=== PATIENT | female | born 1950 | race Caucasian/White ===

== ENCOUNTER 2020-11-22 23:33 | Inpatient (IN) | payer MEDICARE ==
[~2020-11-22] VITALS: Ht 160 cm; Wt 51.7 kg
[2020-11-23] VITALS (7 sets, daily range): BP systolic 160–206; BP diastolic 68–82
[2020-11-23] MEDS ORDERED: ONDANSETRON 4 MG/2 ML (SDV) Z0FRAN IVP PRN (02:00)
[2020-11-23] MEDS ORDERED: VANCOMYCIN INJECTION 0.1 MG in NS (IVPB) 250 ML IV SCH (02:00)
[2020-11-23] MEDS ORDERED: VANCOMYCIN 1 GM/NS 250 ML IVPB IV ONE ×2 (02:30)
[2020-11-23] MEDS: NS IV 1000 ML 1,000 ML IV SCH ×3 (02:37→22:57)
[2020-11-23] MEDS ORDERED: CEFEPIME 1,000 MG/SWFI 10 ML IV PUSH IV ONE ×2 (03:00)
[2020-11-23] MEDS: fentaNYL INJ 100 MCG/2 ML AMP IVP PRN ×4 (04:54→23:00)
[2020-11-23] MEDS: CEFEPIME INJECTION 1,000 MG in WATER (STERILE) FOR INJECTION 10 ML IV SCH ×3 (06:19→22:56)
[2020-11-23 12:48] LABS: BASOPHILS % (AUTO) 0 % (0-10); EOSINOPHILS % (AUTO) 0 % (0-10); HEMATOCRIT 30 % (35-52); HEMOGLOBIN 8.8 g/dL (11.5-16.0); LYMPHOCYTES # (AUTO) 1.2 10^3/uL (1.0-4.0); LYMPHOCYTES % (AUTO) 11 % (12-44); MEAN CORPUSCULAR HEMOGLOBIN 22 pg (25-34); MEAN CORPUSCULAR HGB CONC 29 g/dL (32-36); MEAN CORPUSCULAR VOLUME 74 fL (80-99); MEAN PLATELET VOLUME 8.7 fL (9.0-12.2); MONOCYTES # (AUTO) 0.5 10^3/uL (0.0-1.0); MONOCYTES % (AUTO) 5 % (0-12); NEUTROPHILS % (AUTO) 83 % (42-75); PLATELET COUNT 393 10^3/uL (130-400); WHITE BLOOD COUNT 10.9 10^3/uL (4.3-11.0)
[2020-11-23 12:56] LABS: ALBUMIN 2.7 GM/DL (3.2-4.5); CHLORIDE 103 MMOL/L (98-107); POTASSIUM 3.4 MMOL/L (3.6-5.0); SODIUM 141 MMOL/L (135-145)
[2020-11-23 12:57] LABS: CALCIUM 8.3 MG/DL (8.5-10.1)
[2020-11-23 12:58] LABS: GLUCOSE 75 MG/DL (70-105); TOTAL PROTEIN 6.1 GM/DL (6.4-8.2)
[2020-11-23 12:59] LABS: CARBON DIOXIDE 24 MMOL/L (21-32)
[2020-11-23 13:00] LABS: BILIRUBIN,TOTAL 0.4 MG/DL (0.1-1.0)
[2020-11-23 13:02] LABS: ALKALINE PHOSPHATASE 285 U/L (40-136); CREATININE SERUM 0.62 MG/DL (0.60-1.30); GFR ESTIMATED > 60
[2020-11-23 13:03] LABS: BUN/CREATININE RATIO 35
[2020-11-23 13:05] LABS: ALANINE AMINOTRANSFERASE 37 U/L (0-55)
[2020-11-23] MEDS ORDERED: GABA300C PO ×2 (13:25)
[2020-11-23] MEDS ORDERED: HYDR25TA4 PO (13:25)
[2020-11-23] MEDS ORDERED: LOSA50TA63 PO (13:25)
[2020-11-23] MEDS ORDERED: HYDR-3820 PO (13:25)
[2020-11-23] MEDS ORDERED: LINA5TAB PO (13:25)
[2020-11-23] MEDS ORDERED: SUVO20TA2 PO (13:25)
[2020-11-23] MEDS ORDERED: IRON150C3 PO (13:25)
[2020-11-23] MEDS ORDERED: EMPA25TA PO (13:25)
[2020-11-23] MEDS ORDERED: MULT-1136 PO (13:26)
[2020-11-23] MEDS ORDERED: CHOL200078 PO (13:26)
[2020-11-23] MEDS ORDERED: CETI10TA49 PO (13:26)
[2020-11-23] MEDS ORDERED: ACET-2267 PO (13:26)
[2020-11-23] MEDS ORDERED: DOCU100C37 PO (13:26)
[2020-11-23] MEDS ORDERED: ACETAMINOPHEN 500 MG TAB (TYLENOL) PO PRN (14:00)
[2020-11-23] MEDS ORDERED: NON-FORMULARY MEDICATION 1 EA EA (Cetirizine HCl (Zyrtec) 10 MG) PO PRN (14:00)
[2020-11-23] MEDS ORDERED: LOSARTAN 50 MG (COZAAR) TAB PO ONE (14:15)
[2020-11-23] MEDS ORDERED: LORATADINE (CLARITIN) 10 MG TAB PO PRN (14:15)
[2020-11-23] MEDS: GABAPENTIN 300 MG (NEURONTIN) CAP PO SCH ×3 (14:27→22:57)
--- NOTE | 2020-11-23 14:56 | Consultation - Hospitalist ---
HPI History of Present Illness: HPI/Chief Complaint Pt is a 70yoCF with a PMH of recent apparent spinal osteomyelitis of HTN, IDDMII who is admitted to Dr Kilpatrick for psoas abscess. I am consulted for medical management. She reports that she has been very ill since her infection in May and required 6 weeks of IV abx and that "infection stripped everything good from me." She has been working with therapy to regain strength form that but 1 week ago she developed a fever and abdominal pain. She does have chronic pain and was just taking Tylenol for the fever. She was supposed to get an SI injection but due to here fever was worried she wouldn't be able to get it so went to the ER for evaluation. There she was found to have a psoas abscess and is being admitted for further management. Source: patient Date Seen 11/23/20 Attending Physician Dlian Kilpatrick MD PCP Referring Physician Date of Admission Nov 23, 2020 at 01:15 Home Medications & Allergies Home Medications Reviewed patient Home Medication Reconciliation performed by pharmacy medication reconciliations senior engineering technician and/or nursing. Patients Allergies have been reviewed. Allergies Allergies Coded Allergies Penicillins (Verified Allergy, Unknown, Rash, 11/23/20) adhesive (Verified Allergy, Unknown, 11/23/20) lisinopril (Verified Allergy, Unknown, 11/23/20) COUGH Past [id number] Hx Patient Social History Marrital Status: Tobacco Use?: No Smoking Status: Never a Smoker Smokeless Tobacco Frequency: Never a User Use of E-Cig and/or Vaping Dagoberto: Never a User Pt feels they are or have been: No Seasonal Allergies Seasonal Allergies: No Current Status status: No Advance Directives: No Communicates: Verbally Primary Language: Palestinian Implanted or Applied Medical D: None Past Medical History Surgeries: Abdominal, Appendectomy, Eye Surgery, Hysterectomy, Orthopedic, Tubal Ligation High Cholesterol, Hypertension Vertigo Gastroesophageal Reflux Degenerate Disk Disease, Arthritis Diabetes, Insulin dep Family Medical History Reviewed Nursing Family Hx No Pertinent Family Hx Review of Systems Constitutional: No chills; fever, malaise, weakness EENTM: no symptoms reported Respiratory: No cough, No short of breath Cardiovascular: No chest pain, No edema, No palpitations Gastrointestinal: abdominal pain, loss of appetite; No nausea, No vomiting Genitourinary: No dysuria, No frequency Musculoskeletal: muscle weakness Skin: no symptoms reported Psychiatric/Neurological: No Symptoms Reported Physical Exam Physical Exam Vital Signs Vital Signs - First Documented 11/23/20 01:16 Temp 36.8 Pulse 72 Resp 20 B/P (MAP) 160/68 (98) Pulse Ox 99 O2 Delivery Room Air Capillary Refill : Height, Weight, BMI Height: '" Weight: lbs. oz. kg; 20.19 BMI Method: General Appearance: No Apparent Distress, WD/WN, Thin HEENT: PERRL/EOMI, Moist Mucous Membranes; No Scleral Icterus (L), No Scleral Icterus (R) Neck: Normal Inspection, Supple Respiratory: Lungs Clear, No Accessory Muscle Use, No Respiratory Distress Cardiovascular: Regular Rate, Rhythm, No Murmur Gastrointestinal: Normal Bowel Sounds, Non Tender, Soft Extremity: No Calf Tenderness, No Pedal Edema Neurologic/Psychiatric: Alert, Oriented x3, Normal Mood/Affect Results Results/Procedures Labs Laboratory Tests 11/23/20 12:42 Patient resulted labs reviewed. Assessment/Plan Assessment and Plan Assess & Plan/Chief Complaint Psoas abscess UTI management per primary Continue IV abx Radiology to look at and see if that could drain HTN BP very elevated Resume home medications Hydrazlaine prn IDDMII Continue home meds Patient reports insulin dependence but not on med rec SSI added Will round prSTORMY Bose MD Nov 23, 2020 14:55
[2020-11-23] MEDS ORDERED: hydrALAZINE (APESOLINE) 20 MG/ML VIAL IV PRN (15:00)
[2020-11-23] MEDS: inSUlin ASPART (NovoLOG) 1 UNIT/0.01 ML (CHARGE PER UNIT) SC SCH ×2 (15:32→20:37)
[2020-11-23] MEDS ORDERED: HYDR-3817 PO (17:04)
--- NOTE | 2020-11-23 17:05 | Discharge Inst-Surgical ---
D/C Lap Instructions-KATTY New, Converted, or Re-Newed RX: RX on Chart Follow Up Appt in 2 weeks Activity as tolerated No driving for 24 hours No driving while on pain medications Incentive Spirometry use every 2 hours while awake Regular Diet Symptoms to Report: Fever over 101 degree F, Nausea/Vomiting Infection Signs and Symptoms to report: Increased redness, Foul odor of wound, Increased drainage Bathing instructions: May shower Operative Area Clean/Dry; Keep incision clean/dry If any problems/questions: Contact your physician or go to Emergency Room KELTON ALANIZ MD Nov 23, 2020 17:05
--- NOTE | 2020-11-23 19:19 | HISTORY AND PHYSICAL ---
DATE OF SERVICE: HISTORY OF PRESENT ILLNESS: The patient is a 70-year-old female, who presented to [facility] with fevers for the past week. She reports history of degenerative joint disease and underwent a lumbar open reduction and internal fixation twice; however, the second one was complicated with significant infection requiring opening of the wound and drainage as well as 6 weeks of IV antibiotics. She underwent a CT scan in [place] where a psoas abscess approximately 4 x 5 cm in size was identified. This appears to be chronic. She was also found to have a urinary tract infection. PAST MEDICAL HISTORY: Degenerative joint disease, diabetes, hypercholesterolemia, hypertension, vertigo. PAST SURGICAL HISTORY: Appendectomy, total hysterectomy, tubal ligation, open reduction and internal fixation, lumbar vertebrae x2 with debridement in 05/2020. ALLERGIES: PENICILLIN, LISINOPRIL. MEDICATIONS: Cetirizine 10 mg daily, Colace 100 mg daily, Jardiance 25 mg daily, gabapentin 300 mg daily and all 600 mg daily, 300 mg q.i.d., hydrochlorothiazide 25 mg daily, hydrocodone p.r.n., iron 150 mg b.i.d., linagliptin 5 mg daily, losartan 50 mg daily, suvorexant 20 mg daily. SOCIAL HISTORY: Negative smoke, negative alcohol. FAMILY HISTORY: Mother, breast cancer. Father, colon cancer. VITAL SIGNS: Temperature 36.0, blood pressure 170/73, pulse 86, respirations 20, pulse ox 97% on room air. REVIEW OF SYSTEMS: Well-nourished female currently in no acute distress. She is not experiencing any shortness of breath or difficulty breathing. No chest pain, palpitations, diaphoresis. No nausea, vomiting, no diarrhea, constipation, no red blood per rectum, no dark tarry stools. A 1-week history of intermittent episodes of fevers; however, has been afebrile since admission. PHYSICAL EXAMINATION: CHEST: Clear. Good breath sounds bilaterally. HEART: Regular, no murmurs. EXTREMITIES: No lower extremity edema, negative Homans sign. HEENT: No scleral icterus. NECK: No cervical lymphadenopathy. ABDOMEN: Soft, nondistended. There is mild discomfort upon palpation of the right lower abdomen quadrant. No rebound or guarding. SKIN: Warm, dry. LABORATORY DATA: WBC 10.9, hemoglobin 8.8, hematocrit 30, platelets 393. BUN is 22, creatinine 0.62. ASSESSMENT AND PLAN: A 70-year-old female with a right psoas abscess, likely secondary to infected hardware from open reduction and internal fixation of the lumbar vertebrae. This appears to be chronic and we will proceed with medical management with a consultation of radiology for possible drain placement; however continuation of antibiotics. Job ID: [id number] DocumentID: [id number] Dictated Date: 11/23/2020 18:29:04 Business Lawyer Date: 11/23/2020 19:16:07 Dictated By: KELTON ALANIZ MD
[2020-11-23] MEDS: VANCOMYCIN 1 GM/NS 250 ML IVPB IV SCH ×2 (20:37)
[2020-11-23] MEDS: DOCUSATE SODIUM 100 MG (COLACE) CAP PO SCH (20:37)
[2020-11-23] MEDS: IRON POLYSAC 150 MG CAP (NIFEREX) PO SCH (20:37)
[2020-11-23] MEDS ORDERED: SUVOREXANT 20 MG PO SCH (21:00)
[2020-11-24 03:40] VITALS: BP 139/60
[2020-11-24] MEDS: inSUlin ASPART (NovoLOG) 1 UNIT/0.01 ML (CHARGE PER UNIT) SC SCH ×4 (05:50→21:52)
[2020-11-24] MEDS: MULTIVIT W/MINERALS TAB (THERAGRAN M) PO SCH (06:24)
[2020-11-24] MEDS: CEFEPIME INJECTION 1,000 MG in WATER (STERILE) FOR INJECTION 10 ML IV SCH ×3 (06:24→21:06)
[2020-11-24 08:00] VITALS: BP 147/66
[2020-11-24] MEDS: VITAMIN D3 25 MCG (1,000 UNITS) TABLET PO SCH (08:28)
[2020-11-24] MEDS: IRON POLYSAC 150 MG CAP (NIFEREX) PO SCH ×2 (08:28→21:05)
[2020-11-24] MEDS: LOSARTAN 50 MG (COZAAR) TAB PO SCH (08:28)
[2020-11-24] MEDS: GABAPENTIN 300 MG (NEURONTIN) CAP PO SCH ×5 (08:29→21:06)
[2020-11-24] MEDS: NS IV 1000 ML 1,000 ML IV SCH ×2 (08:29→18:38)
[2020-11-24] MEDS ORDERED: NON-FORMULARY MEDICATION 1 EA EA (Empagliflozin (Jardiance) 25 MG) PO SCH (09:00)
[2020-11-24] MEDS ORDERED: NON-FORMULARY MEDICATION 1 EA EA (Multivitamin 1 EACH) PO SCH (09:00)
[2020-11-24] MEDS ORDERED: NON-FORMULARY MEDICATION 1 EA EA (Cholecalciferol (Vitamin D3) (Vitamin D3) 50 MCG) PO SCH (09:00)
[2020-11-24 12:00] VITALS: BP 144/62
[2020-11-24 16:00] VITALS: BP 177/67
[2020-11-24 20:00] VITALS: BP 177/75
[2020-11-24] MEDS ORDERED: TROUGH ORDER-PHARMACY XX NR (20:00)
[2020-11-24] MEDS: DOCUSATE SODIUM 100 MG (COLACE) CAP PO SCH (21:06)
[2020-11-24] MEDS: VANCOMYCIN 1 GM/NS 250 ML IVPB IV SCH ×2 (21:10)
[2020-11-24 23:35] VITALS: BP 150/62
[2020-11-25] MEDS: NS IV 1000 ML 1,000 ML IV SCH ×2 (03:22→13:51)
[2020-11-25 04:40] VITALS: BP 177/79
[2020-11-25] MEDS: MULTIVIT W/MINERALS TAB (THERAGRAN M) PO SCH ×2 (04:43→14:37)
[2020-11-25] MEDS: CEFEPIME INJECTION 1,000 MG in WATER (STERILE) FOR INJECTION 10 ML IV SCH ×2 (05:31→14:36)
[2020-11-25] MEDS: inSUlin ASPART (NovoLOG) 1 UNIT/0.01 ML (CHARGE PER UNIT) SC SCH ×2 (05:55→11:22)
[2020-11-25 07:30] VITALS: BP 200/84
[2020-11-25] MEDS ORDERED: VANCOMYCIN INJECTION 750 MG in NS (IVPB) 250 ML IV SCH (09:00)
[2020-11-25 11:25] VITALS: BP 177/75
--- NOTE | 2020-11-25 13:29 | Diagnostic Imaging Report ---
EXAMINATION: CT abdomen and pelvis with and without intravenous contrast. TECHNIQUE: Precontrast acquisitions were acquired through the abdomen and pelvis. Multiple contiguous axial images were obtained through the abdomen and pelvis after the administration of intravenous contrast. All CT scans use one or more of the following dose optimizing techniques: automated exposure control, MA and/or KvP adjustment based on patient size and exam type or iterative reconstruction. HISTORY: Psoas abscess COMPARISON: None available. FINDINGS: Limited views of the lower thorax show small bilateral pleural effusions with overlying atelectasis. The liver is normal without focal lesion. There is no biliary ductal dilation. Gallbladder is distended. No wall thickening or pericholecystic fluid or stranding. Hepatic duct is mildly dilated. The dilation is to the level of the ampulla. There is an indeterminate linear area of hypoattenuation in the spleen which may be related to phase of contrast as it becomes less conspicuous on the delayed images.. Adrenal glands are normal. The kidneys are normal. There is no hydronephrosis. Urinary bladder is normal. There is a 5.7 x 4.6 x 5.6 cm right psoas fluid and gas containing collection. It is adjacent to a combined anterior posterior fusion and lumbar spine but no definite evidence of discitis or osteomyelitis is seen on CT. Visualized bowel is normal in caliber without obstruction or inflammation. There is been a gastrojejunostomy. Small amount of free fluid is present in the pelvis. No free intraperitoneal air. No abdominal or pelvic lymphadenopathy. Aorta is normal in caliber without aneurysm. There are no suspicious osseus lesions. IMPRESSION: 1. Right psoas abscess containing fluid and gas measuring 5.7 x 4.6 x 5.6 cm. The abscess is immediately adjacent to the spine and there is an adjacent combined anterior and posterior spinal fusion. No definite evidence of osteomyelitis is seen on CT. 2. Very small bilateral pleural effusions. Dictated by: Dictated on workstation # [id number]
[2020-11-25] MEDS ORDERED: NS 100 ML (IVPB) BAG IV ONE (13:30)
[2020-11-25] MEDS ORDERED: HOLD METFORMIN - RECEIVED CONTRAST 20 ML VIAL IV SCH (13:30)
[2020-11-25] MEDS ORDERED: IOHEXOL 350 MG/ML 100 ML (OMNIPAQUE 350) VIAL IV ONE (13:30)
[2020-11-25] MEDS: LOSARTAN 50 MG (COZAAR) TAB PO SCH (14:36)
[2020-11-25] MEDS: GABAPENTIN 300 MG (NEURONTIN) CAP PO SCH ×3 (14:37→14:47)
[2020-11-25] MEDS: VITAMIN D3 25 MCG (1,000 UNITS) TABLET PO SCH (14:38)
[2020-11-25] MEDS: IRON POLYSAC 150 MG CAP (NIFEREX) PO SCH (14:47)
[2020-11-25 15:30] VITALS: BP 177/75
--- NOTE | 2020-11-25 16:00 | Progress Note ---
Subjective Date Seen by a Provider: Nov 24, 2020 Time Seen by a Provider: 14:00 Subjective/Events-last exam note for patient seen on 11/24/20. patient doing better. one episode mild fevers past 24hrs. tolerating clears and pain better controlled. Objective Exam Vital Signs Date Time Temp Pulse Resp B/P (MAP) Pulse Ox O2 Delivery O2 Flow Rate FiO2 11/25/20 11:25 36.7 73 20 177/75 (109) 73 Room Air 11/25/20 09:00 Room Air 11/25/20 07:30 36.6 75 18 200/84 (122) 7 Room Air 11/25/20 04:40 36.6 78 16 177/79 (111) 94 Room Air 11/24/20 23:35 36.8 71 14 150/62 (91) 97 Room Air 11/24/20 21:56 Room Air 11/24/20 20:00 36.7 79 18 177/75 (109) 98 Room Air 11/24/20 16:00 36.9 82 16 177/67 (103) 98 Room Air I & O 11/25/20 06:59 Intake Total 3160 ml Balance 3160 ml Capillary Refill : General Appearance: No Apparent Distress HEENT: PERRL/EOMI Neck: Full Range of Motion Respiratory: Chest Non Tender, Lungs Clear Cardiovascular: Regular Rate, Rhythm Gastrointestinal: normal bowel sounds, soft, tenderness Extremity: Normal Capillary Refill Neurologic/Psychiatric: Alert, Oriented x3 Skin: Normal Color Lymphatic: No Adenopathy Results Lab Laboratory Tests 11/24/20 16:42: Glucometer 152H 11/24/20 20:09: Vancomycin Level Trough 6.8L 11/24/20 21:20: Glucometer 234H 11/25/20 05:54: Glucometer 145H 11/25/20 11:07: Glucometer 128H Assessment/Plan Assessment/Plan Assess & Plan/Chief Complaint right psoas abscess s/p I&D and debridement lumbar vertebra s/p ORIF. cont IV abx. repeat CT abd and compare abscess from admission CT done in [place]. KELTON ALANIZ MD Nov 25, 2020 16:00
--- NOTE | 2020-11-25 16:04 | Progress Note ---
Subjective Date Seen by a Provider: Nov 25, 2020 Time Seen by a Provider: 16:00 Subjective/Events-last exam doing ok. tolerating reg diet. pain controlled. no fever/chills. Objective Exam Vital Signs Date Time Temp Pulse Resp B/P (MAP) Pulse Ox O2 Delivery O2 Flow Rate FiO2 11/25/20 11:25 36.7 73 20 177/75 (109) 73 Room Air 11/25/20 09:00 Room Air 11/25/20 07:30 36.6 75 18 200/84 (122) 7 Room Air 11/25/20 04:40 36.6 78 16 177/79 (111) 94 Room Air 11/24/20 23:35 36.8 71 14 150/62 (91) 97 Room Air 11/24/20 21:56 Room Air 11/24/20 20:00 36.7 79 18 177/75 (109) 98 Room Air I & O0 11/25/20 06:59 Intake Total 3160 ml Balance 3160 ml Capillary Refill : General Appearance: No Apparent Distress HEENT: PERRL/EOMI Neck: Full Range of Motion Respiratory: Chest Non Tender, Lungs Clear, Normal Breath Sounds Cardiovascular: Regular Rate, Rhythm Gastrointestinal: soft, tenderness Extremity: Normal Capillary Refill Neurologic/Psychiatric: Alert, Oriented x3 Skin: Normal Color Lymphatic: No Adenopathy Results Lab Laboratory Tests 11/24/20 16:42: Glucometer 152H 11/24/20 20:09: Vancomycin Level Trough 6.8L 11/24/20 21:20: Glucometer 234H 11/25/20 05:54: Glucometer 145H 11/25/20 11:07: Glucometer 128H Assessment/Plan Assessment/Plan Assess & Plan/Chief Complaint right psoas abscess s/p I&D and debridement lumbar vertebra s/p ORIF. cont IV abx. repeat CT abd and compare abscess from admission CT done in [place]. looks to be improving. clinically stable. will d/c home with PO abx. pt will need to f/u with dr. andrea at [facility] within 1 week. KELTON ALANIZ MD Nov 25, 2020 16:04
[2020-11-25] MEDS ORDERED: AMOX-358 PO (16:29)
[2020-11-25 16:45] VITALS: BP 177/75
[2020-11-26] MEDS ORDERED: TROUGH ORDER-PHARMACY XX NR (08:00)
== END 2020-11-25 17:17 | disposition home or self-care (01) | DRG 559 ==
LOC: CSD 11-23 01:15 → 4TH 11-23 21:05
PROVIDERS: ADMIT Surgery; ATTEND Surgery
DX: T84.63XA Infection and inflammatory reaction due to internal fixation device of spine, initial encounter (principal); K68.12 Psoas muscle abscess; N39.0 Urinary tract infection, site not specified; I10 Essential (primary) hypertension; E11.9 Type 2 diabetes mellitus without complications; E78.00 Pure hypercholesterolemia, unspecified; K21.9 Gastro-esophageal reflux disease without esophagitis; M19.90 Unspecified osteoarthritis, unspecified site; Z79.4 Long term (current) use of insulin
CPT/HCPCS: 36415; 74178; 80053; 80202; 82947; 85025